=== PATIENT | female | born 1965 | race Caucasian/White ===

== ENCOUNTER 2025-02-09 09:29 | Day surgery (SDC) | payer BC ==
[2025-02-09] MEDS: Lactated Ringers 1,000 ML IV SCH (09:35)
[2025-02-09] MEDS ORDERED: Midazolam 1 MG/ML 2 ML SDV ONE (10:50)
[2025-02-09] MEDS ORDERED: Propofol 200 MG/20 ML SDV ONE (10:50)
[2025-02-09] MEDS ORDERED: fentaNYL 50 MCG/ML SDV ONE (10:50)
[2025-02-09] MEDS ORDERED: Ketamine 200 MG/20 ML MDV ONE (10:50)
[2025-02-09] MEDS ORDERED: ePHEDrine 50 MG/ML SDV ONE (10:50)
[2025-02-09 16:15] VITALS: BP 114/53; PULSE 78
== END 2025-02-09 12:15 | disposition home or self-care (01) ==
LOC: CC.SDS 09:29
PROVIDERS: ATTEND Surgery
DX: Z12.11 Encounter for screening for malignant neoplasm of colon (principal); K64.8 Other hemorrhoids; Z79.82 Long term (current) use of aspirin; Z79.899 Other long term (current) drug therapy
CPT/HCPCS: J2250; J2704; J3010; J3490; J7120